=== PATIENT | male | born 1935 | race Caucasian/White ===

== ENCOUNTER → 2016-09-17 | Day surgery (SDC) | payer MEDICARE, MEDICAID ==
[~2016-09-17] VITALS: Ht 182.9 cm; Wt 93.1 kg
[~2016-09-17] MED LIST: AMARYL1 MG PO; ASPIRIN EC81 MG PO; AZULFIDINE500 MG PO; FLOMAX0.4 MG PO; K-TAB ER20 MEQ PO; LASIX40 MG PO; METAMUCIL660 GM PO; NORVASC10 MG PO; SINGULAIR10 MG PO; TAB-A-VITE1 EACH PO; TOPROL XL100 MG PO; ZOCOR20 MG PO
== END | disposition disaster alternative care site (69) ==
LOC: GPOC 09-16 15:00 → GEND 06:25
PROC: 0DBE8ZX Excision of Large Intestine, Via Natural or Artificial Opening Endoscopic, Diagnostic (ICD-10-PCS; principal; 2016-09-17)
DX: K52.832 Lymphocytic colitis (principal); K57.30 Diverticulosis of large intestine without perforation or abscess without bleeding; K64.4 Residual hemorrhoidal skin tags; E78.5 Hyperlipidemia, unspecified; E11.9 Type 2 diabetes mellitus without complications; I10 Essential (primary) hypertension; Z87.891 Personal history of nicotine dependence; Z88.8 Allergy status to other drugs, medicaments and biological substances; Z79.84 Long term (current) use of oral hypoglycemic drugs; Z79.899 Other long term (current) drug therapy
CPT/HCPCS: J2001; J7030